=== PATIENT | female | born 1975 | race Caucasian/White ===

== ENCOUNTER 2017-07-31 21:23 | Emergency (ER) | payer BC ==
[~2017-07-31] VITALS: Ht 160 cm; Wt 72.7 kg
[2017-07-31 21:37] VITALS: BP 95/48
--- NOTE | 2017-07-31 21:45 | NUR ---
Nacho lee in [facility] - 07/31/17 at 2201 by MEDTOAN TO EVELYN ARZATE D
--- NOTE | 2017-07-31 21:48 | NUR ---
PT BIB VOMITTING X 2 DAYS. LAST TIME VOMITTED 20 MIN AGO IN THE CAR. PT STATED HX OF H. PYROLI 2 YRS AGO AND WAS TREATED. NO OTHER MEDICAL HX. RR EVEN AND UNLABORED. AFEBRILE. BOWEL SOUNDS ACTIVE. VS WITHOUT ACUTE DISTRESS. ER MD MADE AWARE.
--- NOTE | 2017-07-31 22:47 | NUR ---
PT VS WITHOUT ACUTE DISTRESS. AFEBRILE. CONTINUES TO FEEL NAUSEATED BUT NO VOMIT. AT BED SIDE. WILL CONTINUE TO MONITOR.
[2017-07-31] MEDS ORDERED: ONDANSETRON 4 MG/2 ML VIAL IVP ONE (23:40)
[2017-07-31] MEDS ORDERED: NACL 0.9% 1,000 ML IV ONE (23:40)
[2017-08-01] MEDS ORDERED: DICYCLOMINE HCL LIQUID 10 MG/5 ML UDC PO ONE (00:15)
[2017-08-01] MEDS ORDERED: LIDOCAINE VISCOUS 2% 20 ML UDC PO ONE (00:15)
[2017-08-01] MEDS ORDERED: ALUMINUM HYD/MAG/SIMETHICONE 30 ML UDC PO ONE (00:15)
[2017-08-01] MEDS ORDERED: PANTOPRAZOLE 40 MG INJ VIAL IVP ONE (00:40)
[2017-08-01] MEDS ORDERED: KETOROLAC 30 MG/ML VIAL IVP ONE (00:50)
--- NOTE | 2017-08-01 01:03 | NUR ---
IVP MEDS GIVEN-NADR AT THIS TIME
[2017-08-01 01:53] LABS: APPEARANCE,URINE TURBID (CLEAR); BILIRUBIN,URINE NEGATIVE (NEGATIVE); BLOOD, URINE 1+ (NEGATIVE); COLOR,URINE OTHER (YELLOW); LEUKOCYTE ESTERASE ,URINE NEGATIVE (NEGATIVE); NITRITE, URINE POSITIVE (NEGATIVE); UGLUCOSE NEGATIVE (NEGATIVE)
[2017-08-01 02:19] LABS: RBC,URINE 0-5 (RARE) /HPF (0-5); WBC,URINE 0-5 (RARE) /HPF (0-5)
[2017-08-01 02:20] LABS: URINE AMORPHOUS URATE 4+ /HPF (None Seen)
[2017-08-01] MEDS ORDERED: fentaNYL 0.05 MG/ML VIAL IVP ONE (02:30)
[2017-08-01] MEDS ORDERED: CIPROFLOXACIN 250 MG TAB PO ONE (02:30)
--- NOTE | 2017-08-01 02:30 | NUR ---
PT DENIES PAIN AND RESTING IN BED. V/S WITHOUT ACUTE DISTRESS NOTED. WILL CONTINUE TO MONITOR.
[2017-08-01] MEDS ORDERED: ONDANSETRON 4 MG/2 ML VIAL IVP ONE (02:55)
--- NOTE | 2017-08-01 02:55 | NUR ---
PT C/O MUKUL. EVELYN SMITH MADE AWARE.
--- NOTE | 2017-08-01 03:00 | NUR ---
ZOFRAN ADMINISTERED ORDERED.
[2017-08-01 03:05] VITALS: BP 102/74
--- NOTE | 2017-08-01 03:05 | NUR ---
Patient discharged with v/s stable WITH . Written and verbal after care instructions given and explained. Patient alert, oriented and verbalized understanding of instructions. Ambulatory with steady gait. All questions addressed prior to discharge. ID band removed. Patient advised to follow up with PMD. Rx of ZOFRAN, TRAMADOL. MAALOX, MACROBID given. Patient educated on indication of medication including possible reaction and side effects. Opportunity to ask questions provided and answered.
--- NOTE | 2017-08-03 13:10 | NUR ---
Note [email or web address] in EDM - 08/03/17 at 1310 by MEDSS PER URINE CULTURE, PT POSITIVE FOR ESCHERICHIA COLI; PT GIVEN RX FOR KEFLEX 750 MG AND PYRIDIUM 200 MG AT DISCHARGE BY ER MD CANDELARIO; PER ER MD DR STEEL, NO FURTHER RX NEEDED AT THIS TIME.
--- NOTE | 2017-08-03 13:10 | NUR ---
PER URINE CULTURE, PT POSITIVE FOR ESCHERICHIA COLI; PT GIVEN RX MACROBID 100MG AT DISCHARGE BY ER MD DR. TREJO; PER ER MD DR STEEL, NO FURTHER RX NEEDED AT THIS TIME.
== END 2017-08-01 03:05 | disposition home or self-care (01) ==
LOC: MED 21:23
DX: N39.0 Urinary tract infection, site not specified (principal); K29.70 Gastritis, unspecified, without bleeding
CPT/HCPCS: 76705; 81001; 81025; 87086; 87186; 96374; 96375; 96376; 99285; C9113; J1885; J2405; J3010; J7030; Q0092